=== PATIENT | female | born 2000 | race Caucasian/White ===

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

== ENCOUNTER → 2018-03-03 | Outpatient (CLI) | payer BC, OTHER ==
[2018-03-03 10:34] VITALS: BP 102/63; PULSE 77; TEMP 98.2; BMI 26.9
--- NOTE | 2018-03-03 11:44 | P.HPBAR ---
Bariatric H&P - History & Physicial H&P Date: 03/03/18 History & Physicial: Visit/CC: sleeve follow up Patient initial contact: Initial weight: 117.344 kg Initial weight in pounds: 258.70 Height: 5 ft 4 in Initial BMI: 44.4 Last weight: Current weight: 71.214 kg Current weight in pounds: 157.00 Current BMI: 26.9 [place] body weight (based on NIH guidelines): 54.431 kg Excess body weight loss: 73.3% The patient is a 17 year-old F who presents for Bariatric Assessment. The patient presents today for sleeve gastrectomy follow-up. She lives in [place] currently. She has lost 73 pounds her last visit. She has some minimal GERD. She denies any dysphagia. She has complaints of breast ptosis since her weight loss. Past Medical History Past Medical History: Asthma, GERD/Reflux Additional Past Medical History / Comment(s): Asthma triggered by seasonal changes/allergies. SOME ENDOCRINE PROB IN PAST R/T EARLY MENSES, UNSURE OF NAME. History of Any Multi-Drug Resistant Organisms: None Reported Past Surgical History: Adenoidectomy, Bariatric Surgery, Tonsillectomy Additional Past Surgical History / Comment(s): [place] teeth removed 06-25-17 sleeve gastectomy Past Anesthesia/Blood Transfusion Reactions: Family History of Problems w/ Anesthesia Additional Past Anesthesia/Blood Transfusion Reaction / Comm: SISTER GETS CONFUSED FROM ANESTHESIA Past Psychological History: No Psychological Hx Reported Smoking Status: Never smoker Past Alcohol Use History: Occasional Past Drug Use History: None Reported Additional Drug Use History / Comment(s): No reported hx of drug experimentation /use. - Past Family History Mother Family Medical History: Cancer, Thyroid Disorder Additional Family Medical History / Comment(s): Hypothyroidism, Ovarian cancer. Father Family Medical History: Hypertension Surgical - Exam Vital Signs Temp Pulse BP 98.2 F 77 102/63 03/03/18 10:31 03/03/18 10:31 03/03/18 10:31 - General well developed, no distress - Eyes PERRL - ENT normal pinna - Neck no masses - Respiratory normal expansion - Cardiovascular Rhythm: regular - Abdomen Abdomen: soft, non tender Bariatric Assessment & Plan Plan: Status post sleeve gastrectomy. Patient is doing extremely well. Her weight loss has been excellent. Her GERD is minimal will be observed. She'll follow- up in the next time she is in town approximately for 5 months from now. Bariatric Checklist Checklist: Plan: Checklist: EGD: 1. Hiatal hernia: 2. H. Pylori: HgbA1c: Vitamin D: Smoking: Never smoker Primary care physician referral: Dr. Lisha Garcia (& [facility]) Psychiatry clearance: Cardiology clearance: Sleep study: Diet journal: VTE risk score: VTE risk level: Rehab needs at discharge:
[2018-03-03 13:06] LABS: HCT 37.2 % (34.0-46.0); HGB 11.9 gm/dL (11.4-16.0); MCH 28.2 pg (25.0-35.0); MCHC 31.9 g/dL (31.0-37.0); MCV 88.4 fL (80.0-100.0); Platelet Count 268 k/uL (150-450); WBC 7.1 k/uL (4.0-11.0)
[2018-03-03 13:29] LABS: ALT 23 U/L (9-52); AST 18 U/L (14-36); Albumin 3.8 g/dL (3.5-5.0); Alkaline Phosphatase 60 U/L (38-126); Anion Gap 8 mmol/L; Blood Urea Nitrogen 15 mg/dL (7-17); Calcium 9.4 mg/dL (8.4-10.2); Carbon Dioxide 24 mmol/L (22-30); Chloride 108 mmol/L (98-107); Glucose 77 mg/dL (74-99); Potassium 4.3 mmol/L (3.5-5.1); Sodium 140 mmol/L (137-145); Total Bilirubin 0.6 mg/dL (0.2-1.3); Total Protein 6.4 g/dL (6.3-8.2)
[2018-03-03 18:59] LABS: Iron Saturation 32.29 (12.00-45.00)
[2018-03-03 19:08] LABS: Vitamin D 25 Hydroxy 42.9 ng/mL (30.0-100.0)
== END | disposition home or self-care (01) ==
LOC: BARWHC3 09:54
PROVIDERS: ATTEND Surgery
DX: Z48.815 Encounter for surgical aftercare following surgery on the digestive system (principal); D50.8 Other iron deficiency anemias; E44.0 Moderate protein-calorie malnutrition; E55.9 Vitamin D deficiency, unspecified; E66.01 Morbid (severe) obesity due to excess calories; Z68.53 Body mass index [BMI] pediatric, 85th percentile to less than 95th percentile for age; Z90.89 Acquired absence of other organs; Z98.84 Bariatric surgery status
CPT/HCPCS: 80053; 82306; 82607; 83540; 83550; 84134; 84425; 84443; 85027; 99211